=== PATIENT | female | born 1975 | race Caucasian/White ===

== ENCOUNTER 2016-06-09 23:42 | Emergency (ER) | payer OTHER ==
[2016-06-09 23:48] VITALS: RESP 16
[2016-06-10] MEDS ORDERED: SODIUM CHLORIDE 0.9% 500 ML IV STA (00:46)
[2016-06-10] MEDS ORDERED: ONDANSETRON 4 MG/2 ML VIAL IVP STA (00:46)
[2016-06-10] MEDS ORDERED: FAMOTIDINE 20 MG/2 ML VIAL IV STA (00:50)
--- NOTE | 2016-06-10 00:59 | ED ---
General Adult HPI - General Chief complaint: Abdominal Pain Stated complaint: Vomiting,Abd Pain,Dizziness Time Seen by Provider: 06/10/16 00:31 Source: patient, RN notes reviewed Mode of arrival: wheelchair Limitations: no limitations - History of Present Illness Initial comments: This is a 40-year-old female who presents with nausea and vomiting that started today. Patient states she felt nauseous after dinner today. Patient states she 's had 3 episodes of emesis. Patient states she has pain in the epigastric area. Patient denies any fever/chills, diarrhea, dysuria, hematuria or frequency of urination. 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 Patient states the surgery was 3 years ago. Patient denies any cough, congestion, headache, sore throat, otalgia. Patient denies any chance of being . Patient denies any recent shortness breath, chest pain, back pain, numbness, tingling, hematuria, headache, or visual changes, or any other complaints. - Related Data Home Medications Medication Instructions Recorded Confirmed Citalopram Hydrobromide [CeleXA] 1 tab PO DAILY 06/09/16 06/09/16 buPROPion [Wellbutrin] 1 tab PO DAILY 06/09/16 06/09/16 Allergies Allergy/AdvReac Type Severity Reaction Status Date / Time No Known Allergies Allergy Verified 06/10/16 01:00 Review of Systems ROS Statement: Those systems with pertinent positive or pertinent negative responses have been documented in the HPI. ROS Other: All systems not noted in ROS Statement are negative. Past Medical History Past Medical History: No Reported History History of Any Multi-Drug Resistant Organisms: None Reported Additional Past Surgical History / Comment(s): spleenectomy Past Psychological History: Depression Smoking Status: Never smoker Past Alcohol Use History: None Reported Past Drug Use History: None Reported General Exam - General Exam Comments Initial Comments: General: The patient is awake and alert, in no distress, and does not appear acutely ill. Eye: Pupils are equal, round and reactive to light, extra-ocular movements are intact. No nystagmus. There is normal conjunctiva bilaterally. No signs of icterus. Ears: TMs pink and pearly with intact cone of light bilaterally. Normal external ear canals Nose: Nasal turbinates pink and moist Mouth and throat: There are moist mucous membranes and no oral lesions. Neck: The neck is supple, there is no tenderness or JVD. Cardiovascular: There is a regular rate and rhythm. No murmur, rub or gallop is appreciated. Respiratory: Lungs are clear to auscultation, respirations are non-labored, breath sounds are equal. No wheezes, stridor, rales, or rhonchi. Gastrointestinal: Mild discomfort to palpation of the epigastric area. Otherwise nontender abdomen. Soft, non-distended abdomen without masses or organomegaly noted. There is no rebound or guarding present. No CVA tenderness. Bowel sounds are unremarkable. Musculoskeletal: Normal ROM, no tenderness. Strength 5/5. Sensation intact. Radial pulses equal bilaterally 2+. Neurological: A&O x 3. CN II-XII intact, There are no obvious motor or sensory deficits. Coordination appears grossly intact. Speech is normal. Skin: Skin is warm and dry and no rashes or lesions are noted. Psychiatric: Cooperative, appropriate mood & affect, normal judgment. Limitations: no limitations Course Vital Signs 06/09/16 23:45 Temperature 97.8 F Pulse Rate 89 Respiratory 16 Rate Blood Pressure 129/84 O2 Sat by Pulse 99 Oximetry Medical Decision Making - Medical Decision Making This is a 40-year-old female presents with nausea and vomiting that started today. On physical exam patient is afebrile EC: Mild discomfort to palpation of the epigastric area. Otherwise nontender abdomen. Soft, non-distended abdomen without masses or organomegaly noted. There is no rebound or guarding present. No CVA tenderness. Bowel sounds are unremarkable. Basic labs are drawn. Patient was given Zofran and Pepcid and was feeling much better after this. Elevated white blood cell count noted. Patient has no fever upon reevaluation and patient's abdominal pain and nausea have improved. Patient has not had any further episodes of vomiting. The UA was negative for UTI. Elevated ketones noted and patient was given a liter fluids in the EC. Influenza was checked and was negative. I discussed the risks and benefits of CT at this time. Patient refuses CT at this time as she is feeling better. I discussed return parameters at length. I discussed this case with attending physician Dr. Martinez who also examined the patient. Discussed continue Tylenol and Motrin for pain. I discussed the patient should follow-up with her primary care physician tomorrow. I discussed that patient should return to the EC for any worsening symptoms or for any further concerns. Patient was receptive to this plan and patient will be discharged home. I discussed this case attending physician Dr. Martinez who agrees with plan as stated above. - Lab Data Result diagrams: 06/10/16 01:20 06/10/16 01:20 Lab Results 06/10/16 06/10/16 06/10/16 Range/Units 01:10 01:10 01:20 WBC (3.8-10.6) k/uL RBC (3.80-5.40) m/uL Hgb (11.4-16.0) gm/dL Hct (34.0-46.0) % MCV (80.0-100.0) fL MCH (25.0-35.0) pg MCHC (31.0-37.0) g/dL RDW (11.5-15.5) % Plt Count (150-450) k/uL Neutrophils % % Lymphocytes % % Monocytes % % Eosinophils % % Basophils % % Neutrophils # (1.3-7.7) k/uL Lymphocytes # (1.0-4.8) k/uL Monocytes # (0-1.0) k/uL Eosinophils # (0-0.7) k/uL Basophils # (0-0.2) k/uL Sodium 140 (137-145) mmol/L Potassium 4.7 (3.5-5.1) mmol/L Chloride 100 (98-107) mmol/L Carbon Dioxide 25 (22-30) mmol/L Anion Gap 15 mmol/L BUN 9 (7-17) mg/dL Creatinine 0.80 (0.52-1.04) mg/dL Est GFR (MDRD) Af Amer >60 (>60 ml/min/1.73 sqM) Est GFR (MDRD) Non-Af >60 (>60 ml/min/1.73 sqM) Glucose 132 H (74-99) mg/dL Calcium 10.0 (8.4-10.2) mg/dL Total Bilirubin 0.7 (0.2-1.3) mg/dL AST 20 (14-36) U/L ALT 34 (9-52) U/L Alkaline Phosphatase 110 (38-126) U/L Total Protein 8.3 H (6.3-8.2) g/dL Albumin 4.9 (3.5-5.0) g/dL Amylase 49 (30-110) U/L Lipase 41 (23-300) U/L Urine Color Yellow Urine Appearance Clear (Clear) Urine pH 5.5 (5.0-8.0) Ur Specific [place] 1.023 (1.001-1.035) Urine Protein Trace H (Negative) Urine Glucose (UA) Negative (Negative) Urine Ketones 4+ H (Negative) Urine Blood Negative (Negative) Urine Nitrate Negative (Negative) Urine Bilirubin Negative (Negative) Urine Urobilinogen <2.0 (<2.0) mg/dL Ur Leukocyte Esterase Negative (Negative) Influenza Type A RNA Not Detected (Not Detectd) Influenza Type B (PCR) Not Detected (Not Detectd) 06/10/16 Range/Units 01:20 WBC 17.0 H (3.8-10.6) k/uL RBC 4.83 (3.80-5.40) m/uL Hgb 14.6 (11.4-16.0) gm/dL Hct 44.0 (34.0-46.0) % MCV 91.1 (80.0-100.0) fL MCH 30.1 (25.0-35.0) pg MCHC 33.1 (31.0-37.0) g/dL RDW 13.4 (11.5-15.5) % Plt Count 538 H (150-450) k/uL Neutrophils % 91 % Lymphocytes % 5 % Monocytes % 2 % Eosinophils % 1 % Basophils % 0 % Neutrophils # 15.5 H (1.3-7.7) k/uL Lymphocytes # 0.9 L (1.0-4.8) k/uL Monocytes # 0.4 (0-1.0) k/uL Eosinophils # 0.1 (0-0.7) k/uL Basophils # 0.0 (0-0.2) k/uL Sodium (137-145) mmol/L Potassium (3.5-5.1) mmol/L Chloride (98-107) mmol/L Carbon Dioxide (22-30) mmol/L Anion Gap mmol/L BUN (7-17) mg/dL Creatinine (0.52-1.04) mg/dL Est GFR (MDRD) Af Amer (>60 ml/min/1.73 sqM) Est GFR (MDRD) Non-Af (>60 ml/min/1.73 sqM) Glucose (74-99) mg/dL Calcium (8.4-10.2) mg/dL Total Bilirubin (0.2-1.3) mg/dL AST (14-36) U/L ALT (9-52) U/L Alkaline Phosphatase (38-126) U/L Total Protein (6.3-8.2) g/dL Albumin (3.5-5.0) g/dL Amylase (30-110) U/L Lipase (23-300) U/L Urine Color Urine Appearance (Clear) Urine pH (5.0-8.0) Ur Specific [place] (1.001-1.035) Urine Protein (Negative) Urine Glucose (UA) (Negative) Urine Ketones (Negative) Urine Blood (Negative) Urine Nitrate (Negative) Urine Bilirubin (Negative) Urine Urobilinogen (<2.0) mg/dL Ur Leukocyte Esterase (Negative) Influenza Type A RNA (Not Detectd) Influenza Type B (PCR) (Not Detectd) Disposition Clinical Impression: Nausea & vomiting Disposition: HOME SELF-CARE Condition: Good Instructions: Acute Nausea and Vomiting (ED) Additional Instructions: Please sure to drink plenty of fluids. Please use Tylenol and Motrin as needed for any pain. Please follow-up with her primary care physician tomorrow or return to the EC for any worsening symptoms or for any further concerns. Referrals: Ibrahima Patel MD [Primary Care Provider] - 1-2 days Time of Disposition: 02:47
[2016-06-10 01:29] LABS: Basophils % (A) 0 %; CH 30.7; CHCM 33.8; Eosinophils # (A) 0.1 k/uL (0-0.7); Eosinophils % (A) 1 %; HDW 2.29; HGB 14.6 gm/dL (11.4-16.0); Luc # (Auto) 0.11; Luc % (Auto) 1; Lymphocytes # (A) 0.9 k/uL (1.0-4.8); Lymphocytes % (A) 5 %; MCH 30.1 pg (25.0-35.0); MCHC 33.1 g/dL (31.0-37.0); MCV 91.1 fL (80.0-100.0); Mean Platelet Volume 7.4; Monocytes # (A) 0.4 k/uL (0-1.0); Monocytes % (A) 2 %; Neutrophils # (A) 15.5 k/uL (1.3-7.7); Neutrophils % (A) 91 %; RBC 4.83 m/uL (3.80-5.40); RDW 13.4 % (11.5-15.5); WBC (Perox) 16.95
[2016-06-10 01:32] LABS: Appearance,Urine Clear (Clear); Bilirubin,Urine Negative (Negative); Glucose,Urine (UA) Negative (Negative); Ketones,Urine 4+ (Negative); Leukocyte Esterase,Urine Negative (Negative); Nitrite,Urine Negative (Negative); PH, Urine 5.5 (5.0-8.0); Protein,Urine Trace (Negative); Specific Gravity,Urine 1.023 (1.001-1.035); UA Billing (MACRO vs. MICRO) CHEM; Urobilinogen,Urine <2.0 mg/dL (<2.0)
[2016-06-10] MEDS ORDERED: SODIUM CHLORIDE 0.9% 500 ML IV ONE (01:37)
[2016-06-10 01:44] LABS: ALT 34 U/L (9-52); AST 20 U/L (14-36); Alkaline Phosphatase 110 U/L (38-126); Amylase 49 U/L (30-110); Anion Gap 15 mmol/L; Blood Urea Nitrogen 9 mg/dL (7-17); Carbon Dioxide 25 mmol/L (22-30); Chloride 100 mmol/L (98-107); Glucose 132 mg/dL (74-99); Non-African American GFR(MDRD) >60 (>60 ml/min/1.73 sqM); Potassium 4.7 mmol/L (3.5-5.1); Sodium 140 mmol/L (137-145); Total Bilirubin 0.7 mg/dL (0.2-1.3); Total Protein 8.3 g/dL (6.3-8.2)
--- NOTE | 2016-06-10 02:32 | XR ---
INDICATION: Abdominal pain COMPARISON: None. FINDINGS: Upright AP views of the abdomen are provided. Some colonic gas is visualized. Minimal small bowel gas is visible. There is no evidence of free air. Regional skeleton is intact. IMPRESSION: 1. Nonspecific bowel gas pattern with a largely gasless abdomen, small bowel obstruction not excluded.
[2016-06-10 03:20] VITALS: BP 124/70; PULSE 79; TEMP 98.5
== END 2016-06-10 03:19 | disposition home or self-care (01) ==
LOC: EC 23:42
DX: R11.2 Nausea with vomiting, unspecified (principal); R10.13 Epigastric pain; D72.829 Elevated white blood cell count, unspecified; R42 Dizziness and giddiness; F32.9 Major depressive disorder, single episode, unspecified; Z79.899 Other long term (current) drug therapy
CPT/HCPCS: 36415; 80053; 82150; 83690; 85025; 81003; 87086; 87502; 74000; 99284; 96374; 96375; 96361; J2405

== ENCOUNTER → 2017-01-12 | Outpatient (CLI) | payer OTHER ==
--- NOTE | 2017-01-12 11:17 | MM ---
Reason for exam: screening (asymptomatic). Baseline mammogram. History: Family history of breast cancer in maternal grandmother. Physical Findings: Nurse did not find any significant physical abnormalities on exam. MG Screening Mammo w CAD Bilateral CC and MLO view(s) were taken. The breast tissue is heterogeneously dense. This may lower the sensitivity of mammography. There is no discrete abnormality. These results were verbally communicated with the patient and result sheet given to the patient on 01/12/17. ASSESSMENT: Negative, BI-RAD 1 RECOMMENDATION: Routine screening mammogram of both breasts in 1 year.
== END | disposition home or self-care (01) ==
LOC: RADMAMWWP 09:38
PROVIDERS: ATTEND Obstetrics & Gynecology
DX: Z12.31 Encounter for screening mammogram for malignant neoplasm of breast (principal); Z80.3 Family history of malignant neoplasm of breast

== ENCOUNTER → 2021-08-03 | Outpatient (CLI) | payer BC ==
--- NOTE | 2021-08-04 08:16 | MM ---
Reason for exam: screening (asymptomatic). Last mammogram was performed 4 years and 7 months ago. History: Family history of breast cancer in maternal grandmother. Physical Findings: A clinical breast exam by your physician is recommended on an annual basis and results should be correlated with mammographic findings. MG Screening Mammo w CAD Bilateral CC and MLO view(s) were taken. Prior study comparison: January 12, 2017, bilateral MG screening mammo w CAD. The breast tissue is extremely dense which could obscure a lesion on mammography. There are benign appearing round calcifications bilaterally. There is no discrete abnormality. ASSESSMENT: Benign, BI-RAD 2 RECOMMENDATION: Routine screening mammogram of both breasts in 1 year.
== END | disposition home or self-care (01) ==
LOC: RADMAMWWP 09:37
PROVIDERS: ATTEND Obstetrics & Gynecology
DX: Z12.31 Encounter for screening mammogram for malignant neoplasm of breast (principal); Z80.3 Family history of malignant neoplasm of breast
CPT/HCPCS: 77067